=== PATIENT | female | born 1945 | race Caucasian/White ===

== ENCOUNTER 2017-07-07 08:35 | Emergency (ER) | payer MEDICARE, BC ==
[2017-07-07 08:50] VITALS: BP 155/81
--- NOTE | 2017-07-07 13:37 | UC ---
Blake Singer Julia, scribed for Gallo Abraham MD on 07/07/17 at 0912 . Skin Complaint HPI - HPI Summary HPI Summary: This patient is a 72 year old F [place] [facility] [place] bite, occurring yesterday, on the left dorsal aspect of the foot with a skin lesion. Patient complains of itching. Patient denies pain and any other symptoms. - History of Current Complaint Chief Complaint: UCSkin Time Seen by Provider: 07/07/17 08:52 Stated Complaint: SKIN ISSUE Hx Obtained From: Patient Onset/Duration: Lasting Hours Skin Exposure Onset/Duration: Days Ago Timing: Constant Pain Intensity: 0 Pain Scale Used: 0-10 Numeric Location: Foot (Left) Character: Pruritus Associated Signs & Symptoms: Positive: Negative Related History: Insect Bite/Sting - Allergy/Home Medications Allergies/Adverse Reactions: Allergies Allergy/AdvReac Type Severity Reaction Status Date / Time No Known Allergies Allergy Verified 07/07/17 08:50 Home Medications: Home Medications Fexofenadine/Pseudoephedrine [Kimberly-D 24 Hour Tablet] 1 each PO DAILY PRN 02/12 [History Confirmed 07/07/17] Review of Systems Constitutional: Negative Skin: Other - insect bite over left foot All Other Systems Reviewed And Are Negative: Yes PMH/Surg Hx/FS Hx/Imm Hx Previously Healthy: Yes - Surgical History Surgical History: None - Family History Known Family History: Positive: Hypertension - Social History Alcohol Use: Rare Substance Use Type: None Smoking Status (MU): Never Smoked Tobacco Physical Exam - Summary Physical Exam Summary: VITAL SIGNS: Reviewed. GENERAL: Patient is a well developed and nourished female who is lying comfortable in the stretcher. Patient is not in any acute respiratory distress. HEAD AND FACE: Normocephalic EYES: PERRLA, EOMI x 2. EARS: Hearing grossly intact. MOUTH: Oropharynx within normal limits. NECK: Supple, trachea is midline, no adenopathy, no JVD, no carotid bruit. CHEST: Symmetric, no tenderness at palpation LUNGS: Clear to auscultation bilaterally. No wheezing or crackles. CVS: Regular rate and rhythm, S1 and S2 present, no murmurs or gallops appreciated. ABDOMEN: Soft, non-tender. Bowel sounds are normal. No abdominal abnormal pulsations. EXTREMITIES: Full ROM in all major joints, no edema, no cyanosis or clubbing. NEURO: Alert and oriented x 3. No acute neurological deficits. Speech is normal and follows commands. SKIN: Dry and warm, a lesion on the dorsal aspect of the left foot Triage Information Reviewed: Yes Vital Signs: Initial Vital Signs Temp 98.1 F 07/07/17 08:47 Pulse 71 07/07/17 08:47 Resp 16 07/07/17 08:47 BP 155/81 07/07/17 08:47 Pulse Ox 100 07/07/17 08:47 Vital Signs Reviewed: Yes Course/Dx - Course Course Of Treatment: This patient is a 72 year old F [place] [facility] insect bite on the left dorsal aspect of the foot with a skin lesion. Patient complains of itching. Patient denies pain and any other symptoms. Recommended to patient to apply Bacitracin, antibiotic, or Benadryl cream for the itching. I discussed all the findings with the patient. Patient was instructed to return to the urgent care or go to ER immediately if any of the symptoms return or worsens. Plan of care was discussed with the patient, and patient understands and agrees. All questions were answered to patient satisfaction. There were no further complaints or concerns. - Diagnoses Provider Diagnoses: insect bite Discharge - Sign-Out/Discharge Documenting (check all that apply): Discharge/Admit/Transfer - Discharge Plan Condition: Stable Disposition: HOME Patient Education Materials: Insect Bite or Sting (ED) Referrals: Reza Plata MD [Primary Care Provider] - Additional Instructions: Increase your fluid intake Return to the UC if symptoms worsen The documentation as recorded by the Blake aguilar Julia accurately reflects the service I personally performed and the decisions made by me, Gallo Abraham MD.
== END 2017-07-07 09:08 | disposition home or self-care (01) ==
LOC: UCEAST 08:35
DX: S90.862A Insect bite (nonvenomous), left foot, initial encounter (principal); W57.XXXA Bitten or stung by nonvenomous insect and other nonvenomous arthropods, initial encounter; Y93.9 Activity, unspecified; Y92.9 Unspecified place or not applicable
CPT/HCPCS: 99211; G0463